=== PATIENT | female | born 1960 | race Two or more races ===

== ENCOUNTER 2016-08-01 09:59 | Emergency (ER) | payer OTHER ==
[2016-08-01 10:07] VITALS: TEMP 97.2
[2016-08-01] MEDS ORDERED: ACETAMINOPHEN 325 MG TAB PO ONE (11:08)
--- NOTE | 2016-08-01 11:08 | EDPHY ---
H & P Stated Complaint: headache x 2 days, no trauma Source: Patient Exam Limitations: Language barrier - Personal History LMP (Females 10-55): Unknown Current Tetanus/Diphtheria Vaccine: Unsure Current Tetanus Diphtheria and Acellular Pertussis (TDAP): Unsure - Medical/Surgical History Hx Asthma: No Hx Chronic Respiratory Disease: No Hx Diabetes: No Hx Cardiac Disease: No Hx Renal Disease: No Hx Cirrhosis: No Hx Alcoholism: No Hx HIV/AIDS: No Hx Splenectomy or Spleen Trauma: No Other PMH: hypothyroid - Social History Smoking Status: Never smoked Time Seen by Provider: 08/01/16 10:47 HPI/ROS: CHIEF COMPLAINT: headache, left ear numbness HISTORY OF PRESENT ILLNESS: 55-year-old female presents to the emergency department sent by her primary care doctor for evaluation of a headache and left ear numbness. Patient reports a headache that started yesterday morning and gradually worsened while cleaning her house on the top of her head, she reports it is a pressure, she took Tylenol yesterday and her headache subsided around 5:00 p.m., it started at 9:00 a.m. patient states her headache started up again around 8:00 p.m. and continues today. She reports 4/10 pressure to the top of her head, she was concerned this morning as when she woke up her left ear was numb as well as her temporal scalp behind her left ear. Patient reports her ears no longer numb though behind her ear is still numb. Patient denies blurred vision, confusion, nausea. She denies sensitivity to light. No difficulty with ambulation or speech, has been states she is acting appropriate. Patient has no history of CVA, coronary artery disease or blood clots. No family history either. She has not taken any medication for this headache. REVIEW OF SYSTEMS: A comprehensive 10 point review of systems is otherwise negative aside from elements mentioned in the history of present illness. (Ginny Perez) Constitutional: Initial Vital Signs Temperature (C) 36.2 C 08/01/16 10:04 Heart Rate 59 L 08/01/16 10:04 Respiratory Rate 16 08/01/16 10:04 Blood Pressure 112/72 08/01/16 10:04 O2 Sat (%) 98 08/01/16 10:04 O2 Delivery Mode Room Air Allergies/Adverse Reactions: No Known Allergies Allergy (Verified 08/31/12 22:02) Home Medications: Medication Instructions Recorded Levothyroxine [Levothroid, 88 mcg PO DAILY@1000 07/01/11 Synthroid] Allergy Shots 10/11/13 Oseltamivir Phosphate [Tamiflu] 75 mg PO BIDMEAL 5 Days 10/11/13 Medical Decision Making - Diagnostics Imaging: CT brain- Impression: No acute intracranial findings. Findings discussed with NANCY Holguin, today at 1130 hours. Dictated By: Keyon Pickett MD MRI brain with and without contrast- Impression: Normal MRI of the brain without and with contrast. Findings discussed with Ginny Preez NP today at 1408 hours. Dictated By: Keyon Pickett MD (Ginny Perez) ED Course/Re-evaluation: IV established, CBC and chemistry panel obtained, CT brain without contrast has been ordered. 1130-CC seen chemistry panel are unremarkable, CT brain without contrast is normal. 1220- patient reports her headache is resolved, her numbness behind her left ear continues. I have consulted with Dr. Devon Box who is recommending an MRI brain with and without contrast. I have discussed with the patient and she is agreeable to the plan. 1400-MRI brain with and without contrast are normal. Patient is anxious to be discharged home. She has been discharged with instructions to follow up with her primary care doctor. She is given return precautions for worsening symptoms. (Ginny Perez) Differential Diagnosis: Diagnosis considered but not limited to migraine, CVA, paresthesias, electrolyte abnormality, trigeminal neuralgia (Ginny Perez) Other Provider: This patient was evaluated and managed by the nurse practitioner. I have reviewed the chart and agree with the findings and plan of care as documented. We discussed the management of this patient during the course of her care. ( Neelima Wilkerson) - Data Points Laboratory Results: Laboratory Results 08/01/16 11:25 08/01/16 11:25 Medications Given: Discontinued Medications Acetaminophen (Tylenol) 650 mg PO EDNOW ONE Stop: 08/01/16 11:09 Last Admin: 08/01/16 11:48 Dose: 650 mg Diphenhydramine HCl (Benadryl Injection) 25 mg IVP EDNOW ONE Stop: 08/01/16 11:41 Last Admin: 08/01/16 11:49 Dose: 25 mg Sodium Chloride (Ns) 1,000 mls @ 0 mls/hr IV ONCE ONE PRN Reason: Wide Open Stop: 08/01/16 11:42 Last Admin: 08/01/16 12:02 Dose: 1,000 mls Ketorolac Tromethamine (Toradol) 15 mg IVP EDNOW ONE Stop: 08/01/16 11:42 Last Admin: 08/01/16 11:49 Dose: 15 mg Lorazepam (Ativan Injection) 1 mg IVP EDNOW ONE Stop: 08/01/16 13:09 Last Admin: 08/01/16 13:14 Dose: 1 mg Promethazine HCl (Phenergan Injection) 12.5 mg IVP EDNOW ONE Stop: 08/01/16 11:41 Last Admin: 08/01/16 11:50 Dose: 12.5 mg Departure - Departure Disposition: Home, Routine, Self-Care Clinical Impression: Paresthesia Headache Qualifiers: Headache type: unspecified Headache chronicity pattern: acute headache Intractability: not intractable Qualifier Code: (R51) Headache Condition: Good Instructions: Acute Headache (ED), Paresthesia (ED) Additional Instructions: Take 650 mg of Tylenol every 8 hours as needed for headache, follow up with your primary care doctor for re-evaluation next week. Return to the emergency department for worsening symptoms. [place] 650 mg de Tylenol cada 8 horas caroline sea necesario para el dolor de baceza, lonnie un seguimiento con sudoctor de cuidado medico para anette reeveluacion la proxima semana. Regrese al departamento de emergencias si los sintomas empeoran. Referrals: Dick Holder DO [Primary Care Provider] - As per Instructions Print Language: Vincentian
[2016-08-01 11:39] LABS: % IMMATURE GRANULYOCYTES 0.2 % (0.0-1.1); ABSOLUTE IMMATURE GRANULOCYTES 0.01 10^3/uL (0.00-0.10); ADD DIFF? NO; ADD MORPH? NO; ADD SCAN? NO; ATYPICAL LYMPHOCYTE FLAG 10 (0-99); FRAGMENT RBC FLAG 0 (0-99); HEMATOCRIT 40.3 % (38.0-47.0); HEMOGLOBIN 13.9 g/dL (12.6-16.3); LEFT SHIFT FLG 0 (0-99); LIPEMIA HEMOLYSIS FLAG 90 (0-99); MEAN CELL HEMOGLOBIN 28.6 pg (27.9-34.1); MEAN CELL HEMOGLOBIN CONCENTR. 34.5 g/dL (32.4-36.7); MEAN CELL VOLUME 82.9 fL (81.5-99.8); MEAN PLATELET VOLUME 9.8 fL (8.7-11.7); PLATELET CLUMPS FLAG 0 (0-99); PLATELET COUNT 311 10^3/uL (150-400); RED BLOOD CELL COUNT 4.86 10^6/uL (4.18-5.33); RED CELL DISTRIBUTION WIDTH 12.8 % (11.5-15.2)
[2016-08-01] MEDS ORDERED: PROMETHAZINE HCL 25 MG/ML INJ IVP ONE (11:40)
[2016-08-01] MEDS ORDERED: KETOROLAC 15 MG/1 ML SDV IVP ONE (11:41)
[2016-08-01] MEDS ORDERED: NS 1,000 ML IV ONE (11:41)
--- NOTE | 2016-08-01 11:44 | CT ---
CT Head Without Contrast History: Headache and numbness behind left ear since this morning. Comparison: None available. Technique: Axial unenhanced images were obtained from the vertex through the skull base. Dose reducti on techniques were utilized. Findings: Lynn-white differentiation is preserved. The ventricles and sulci are normal. No intracra nial hemorrhage is identified. No extraaxial fluid collections are identified. There is no mass effe ct or evidence of infarct. The skull and skull base are unremarkable. Mild mucous membrane thickeni ng is present in the paranasal sinuses. The mastoid air cells are clear. Impression: No acute intracranial findings. Findings discussed with NANCY Holguin, today at 1130 hours.
[2016-08-01 11:54] LABS: ANION GAP 10 mEq/L (8-16); CARBON DIOXIDE 26 mEq/l (22-31); CHLORIDE 107 mEq/L (97-110); CREATININE 0.7 mg/dL (0.6-1.0); GLOMERULAR FILTRATION RATE > 60; GLUCOSE 87 mg/dL (70-100); POTASSIUM 3.9 mEq/L (3.5-5.2); SODIUM 143 mEq/L (134-144)
[2016-08-01 12:04] LABS: INR 1.07 (0.83-1.16); PROTIME(PATIENT) 13.8 SEC (12.0-15.0)
[2016-08-01] MEDS ORDERED: GADOBUTROL 10 ML VIAL IVP ONE (12:48)
[2016-08-01] MEDS ORDERED: LORazepam 2 MG/ML INJ IVP ONE (13:08)
--- NOTE | 2016-08-01 14:10 | MR ---
MRI of the Brain (Without and With Contrast) Clinical Indication: Paresthesias behind left ear. Comparison: CT head same day at 1120 hours. Technique: T1-weighted images were acquired axially and sagittally from the foramen magnum to the ve rtex. Axial fast inversion recovery, fast T2-weighted, and diffusion-weighted axial images were obta ined without contrast. Postcontrast multiplanar images with the uneventful intravenous administration of 9 mL Gadavist contrast. Findings: The ventricles, cisterns, and sulci are normal without atrophy, hydrocephalus, midline randall ft, herniation, or epidural/subdural hematomas. No intracranial hemorrhage or masses. Diffusion-weigh radha images demonstrate no acute infarct. Cerebellar tonsils are in normal position. Pituitary gland i s normal in size. Normal signal flow-void in the superior sagittal sinus, basilar artery, and bilater al internal carotid arteries indicating patency. Postcontrast images demonstrate no enhancing lesions or abnormal leptomeningeal enhancement. Mild mucous membrane thickening is present in the paranasal sinuses. The mastoid air cells are clear. Impression: Normal MRI of the brain without and with contrast. Findings discussed with Ginny Perez NP today at 1408 hours.
[2016-08-01 14:35] VITALS: BP 101/73; PULSE 50; RESP 16; O2SAT 96
== END 2016-08-01 14:35 | disposition home or self-care (01) ==
DX: R51 Headache (principal); R20.2 Paresthesia of skin
CPT/HCPCS: 96374; A9585; J1200; J1885; J2550

== ENCOUNTER → 2016-08-28 | Outpatient (CLI) | payer OTHER | LOC: CIMAGING 15:02 | DX: Z12.31 Encounter for screening mammogram for malignant neoplasm of breast (principal) | CPT/HCPCS: G0202 ==

== ENCOUNTER → 2017-08-30 | Outpatient (CLI) | payer OTHER | LOC: CIMAGING 14:37 | PROVIDERS: ATTEND Family Medicine | DX: Z12.31 Encounter for screening mammogram for malignant neoplasm of breast (principal) ==

== ENCOUNTER → 2017-10-28 | Outpatient (CLI) | payer OTHER | LOC: CIMAGING 18:39 | PROVIDERS: ATTEND Family Medicine | DX: M50.321 Other cervical disc degeneration at C4-C5 level (principal) | CPT/HCPCS: 72040-PO ==

== ENCOUNTER → 2018-09-02 | Outpatient (CLI) | payer OTHER | LOC: CIMAGING 14:51 | PROVIDERS: ATTEND Family Medicine | DX: Z12.31 Encounter for screening mammogram for malignant neoplasm of breast (principal) ==